=== PATIENT | male | born 1950 | race Caucasian/White ===

== ENCOUNTER 2020-08-24 11:39 | Emergency (ER) | payer OTHER ==
[~2020-08-24] VITALS: Ht 172.7 cm; Wt 88.5 kg
[2020-08-24] MEDS ORDERED: Norco 5-325 Ta1 EACH PO (14:28)
== END 2020-08-24 14:41 | disposition home or self-care (01) ==
LOC: ER 11:39
DX: R07.81 Pleurodynia (principal); M54.6 Pain in thoracic spine; I10 Essential (primary) hypertension; Z88.5 Allergy status to narcotic agent; W19.XXXA Unspecified fall, initial encounter
CPT/HCPCS: 71046; 99283-25; A9270-GY